=== PATIENT | male | born 1985 | race Caucasian/White ===

== ENCOUNTER 2023-06-15 09:13 | Emergency (ER) | payer BC, SELFPAY ==
[2023-06-15 09:15] VITALS: BP 137/81
--- NOTE | 2023-06-15 09:54 | ED.GENMED ---
History of Present Illness
General
Chief Complaint: Skin Surface Trauma
Source: patient
Exam Limitations: none
Time Seen by Provider: 06/15/23 09:23
Nursing documentation reviewed up to this point in time: agreed with
Travel History
Have you had any contact with someone who has COVID-19?: No
Do you have any symptoms of coronavirus? Fever > 100 degrees, chills, cough, shortness of breath, sore throat, loss of taste or smell, muscle aches, or headache?: No
History of Present Illness
History of Present Illness:
38 y/o M with no sig pmh
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 pt has a laceration on the fat pad of the left index finger
pt has not had any excessive bleeding, pain, immobility
Tetanus is unknown
Past History
Past History
ED Past Medical History: None
ED Past Surgical History: None
Social History
Tobacco: Non-smoker
Alcohol: None
Drug: None
Personal:
Living: with family
Employment: Employed
Review of Systems
Review of Systems
Allergies reviewed?: Yes
All Other Systems: Not applicable
Phy Exam
Physical Exam
Physical Exam:
GENERAL: Alert , in no apparent distress, comfortable at rest
HEAD: NCAT
CV: 2+ radial pulse, cap refill intact
NEUROLOGICAL: Alert and oriented, no focal neuro deficits, , 5/5 strength, sensation intact,
SKIN: Warm and dry, linear laceration 1 cm fat pad to left index finger, no bleeding
MUSCULOSKELETAL: index finger normal inspection otherwise has a small laceration
full rom
normal sensation
PSYCH: Normal and appropriate interaction.
Course
Orders/Labs/Results
Orders:
Orders
06/15/23 09:53
Tetanus/Diphth/Acelpertussis [Adacel] 0.5 ml IM .ONCE ONE
Vital Signs
Initial and Last Documented VS:
Initial Vital Signs
Temp Pulse Resp BP Pulse Ox
99 F 86 18 137/81 97
06/15/23 09:15 06/15/23 09:15 06/15/23 09:15 06/15/23 09:15 06/15/23 09:15
Last Documented Vital Signs
Temp Pulse Resp BP Pulse Ox
99 F 86 18 137/81 97
06/15/23 09:15 06/15/23 09:15 06/15/23 09:15 06/15/23 09:15 06/15/23 09:15
Procedures
Laceration Closure
Left Anterior Second Finger(s):
Status of Wound: clean
Size of Wound in cm: 1
Description of Wound Edges: sharp and flap-well vascularized
Preparation: cleaned with soap & water and cleaned with saline
Revision/Debridement: routine- no revision
Wound exploration: explored to base- no FB
Type of Closure: single layer closure and Dermabond-skin glue
*Critical Care Note
Total Time (30-74mins, 75-104mins- exclusive of procedures): Not Applicable
ED Attending Note
-
Portions of this chart may have been created with voice recognition software.� Occasional wrong word or��sound alike� substitutions may have occurred due to the inherent limitations of voice recognition software.
Discharge Plan
Departure
Patient Disposition: Home (Routine Discharge)
Date of Disposition: 06/15/23
Time of Disposition: 09:58
Patient with high blood pressure during this ER visit?: No
Covid-19: Not Applicable
Discharge Problem:
Laceration of finger
Instructions: Laceration Repair With Glue (DC)
Referrals:
Markie Mike MD [Family Provider] - Follow up in 5-7 days
Activity Restrictions/Additional Instructions:
Your wound was closed with glue and Steri-Strips. The bandages stay on and try to remain dry for 2 days. After that you can remove it and get your hand wet as usual. The Steri-Strips and glue will peel up and fall off in 3 to 5 days.
You were given a tetanus shot. Return for any concerns
Interventions
Interventions:
*Risk Screen - Suicide Last Done: 06/15/23 09:15
*General Assessment Last Done: 06/15/23 09:15
*Neglect/Abuse Screening Last Done: 06/15/23 09:15
*Nursing Disposition Last Done: 06/15/23 10:40
ED-Skin Assessment Last Done: 06/15/23 09:28
Discharge Date and Time
Discharge Date/Time: 06/15/23 10:41
[2023-06-15] MEDS: ADACEL 0.5 ML IM (10:06)
== END 2023-06-15 10:41 | disposition home or self-care (01) ==
LOC: EMR 09:13
PROVIDERS: EMERGENCY PHYSICIAN Emergency Medicine; FAMILY PHYSICIAN Family Medicine
DX: S61.211A Laceration without foreign body of left index finger without damage to nail, initial encounter (principal); W26.0XXA Contact with knife, initial encounter; Z23 Encounter for immunization
CPT/HCPCS: 99282; 12001; 90471; 90715